=== PATIENT | female | born 1980 | race Caucasian/White ===

== ENCOUNTER 2017-12-22 09:25 | Inpatient (IN) | payer BC, OTHER ==
[2017-12-20 09:31] VITALS: BMI 18.3
--- NOTE | 2017-12-20 13:37 | HP ---
Admitting History and Physical - Primary Care Physician PCP: Macho Elizondo - Admission Chief Complaint: Bilateral accessory breast tissue BRCA positive History of Present Illness: 36 yearold prmenapausal female BRCA 2 positve S/P bilateral total mastectomies prophylactic and nipple sparing. 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 She had some lactational changes and large left axillary node left axilla benign in nature. She had reconstruction with expanders then implants and has noticed a large amount of excess breast tissue and discrete tissue in the upper inner and upper outer aspects of both breasts. Lactational changes have resolved except for retro areolar thickening. History Source: Patient Limitations to Obtaining History: No Limitations - Past Medical History ...LMP: 12/04/17 ...: No - Past Surgical History Past Surgical History: Yes: Mastectomy (Bilateral prophylactic mastectomies with implant after flower planter 2014.incidental left breast DCIS BRCA 2+ left breast excisionalbx 1998 and two core bxs 2004 and 2013. rhinoplasty) - Smoking History Smoking history: Never smoked Have you smoked in the past 12 months: No - Alcohol/Substance Use Hx Alcohol Use: Yes (SOCIALLY) Home Medications - Allergies Allergies/Adverse Reactions: Allergies Allergy/AdvReac Type Severity Reaction Status Date / Time No Known Allergies Allergy Verified 12/20/17 09:22 - Home Medications Home Medications: Ambulatory Orders Clindamycin Phos/Benzoyl Perox [Onexton Gel Pump] 50 gm TP DAILY 12/20/17 Family Disease History - Family Disease History Family Disease History: CA: Father (Lung ca 65) Other Family History: mat aunt breast ca 43 Physical Examination Constitutional: Yes: Well Nourished Breast(s): Yes: Other (Obvious bilateral nipple sparing mastectomies through imframammary aproach with bilateral implants . She has thickening retroareolar region and upper inner and outer aspects of both breasts. No suspicious masses or adenopathy) Problem List - Problems (1) Accessory breast in female Code(s): Q83.1 - ACCESSORY BREAST Assessment/Plan excision of accessory breast tissue bilaterally
[2017-12-22] MEDS ORDERED: MIDAZOLAM HCL 2 MG/2 ML SINGLE DOSE VIAL ONE (09:44)
[2017-12-22] MEDS ORDERED: PROPOFOL 20 ML ONE ×2 (09:44→11:44)
[2017-12-22] MEDS ORDERED: LIDOCAINE HCL/PF 2% SDV 5ML VIAL ONE (09:46)
[2017-12-22] MEDS ORDERED: ceFAZolin SODIUM 1 GM VIAL ONE ×2 (11:00→11:41)
[2017-12-22] MEDS ORDERED: LIDOCAINE HCL 1%, 10 MG/ML (20ML VIAL) ONE (11:01)
[2017-12-22] MEDS ORDERED: GENTAMICIN SO4 80 MG/2 ML VIAL ONE (11:01)
[2017-12-22] MEDS ORDERED: BUPIVACAINE HCL/PF 0.5% (5MG/ML) 10 ML VIAL ONE (11:01)
[2017-12-22] MEDS ORDERED: LIDOCAINE 1%/EPI 1:100000 (20 ML MULTI DOSE VIAL) ONE (11:57)
[2017-12-22] MEDS ORDERED: oxyCODONE HCL 5 MG TABLET PO PRN ×3 (13:25→14:42)
[2017-12-22] MEDS ORDERED: ZOLPIDEM TARTRATE 5 MG TABLET PO PRN (13:25)
[2017-12-22] MEDS ORDERED: ONDANSETRON 4 MG/2 ML VIAL ONE ×2 (14:01→15:11)
[2017-12-22] MEDS ORDERED: ONDANSETRON 4 MG/2 ML VIAL IVPUSH PRN (14:42)
[2017-12-22] MEDS ORDERED: PROMETHAZINE HCL 25 MG/1 ML VIAL IVPUSH PRN (14:42)
[2017-12-22] MEDS: ONDANSETRON 4 MG/2 ML VIAL IVPUSH PRN (15:13)
[2017-12-22] MEDS: CEFAZOLIN 1 GM/D5W 1 GM/50 ML BAG IVPB SCH ×2 (16:00→20:07)
[2017-12-23] MEDS: oxyCODONE HCL 5 MG TABLET PO PRN ×3 (00:53→19:00)
[2017-12-23] MEDS: CEFAZOLIN 1 GM/D5W 1 GM/50 ML BAG IVPB SCH ×4 (02:24→21:25)
--- NOTE | 2017-12-23 08:47 | OP ---
DATE OF OPERATION: 12/22/2017 PREOPERATIVE DIAGNOSIS: BRCA positive, a strong family history, status post bilateral nipple-sparing mastectomy and history of left breast ductal carcinoma in situ, now with excess breast tissue. POSTOPERATIVE DIAGNOSIS BRCA positive, a strong family history, status post bilateral nipple-sparing mastectomy and history of left breast ductal carcinoma in situ, now with excess breast tissue. PROCEDURE: :Bilateral removal of excess breast tissue and exchange of implants. PRIMARY SURGEON: Clinton Ng MD OVEN STRIPPER: VAL Freire PRIMARY SURGEON FOR THE PLACEMENT OF BILATERAL IMPLANTS AND PLACEMENT OF ALLODERM: Clinton Milligan MD HIS OVEN STRIPPER: VAL Randhawa COMPLICATIONS: There were no complications. INDICATIONS: Briefly, the patient is a 37-year-old premenopausal white female of [place], [place], [place], and [place] descent. She has a strong family history with her mother who had breast cancer at age 43 and a paternal aunt who had breast cancer at age 43. Her mother, her sister, and herself all tested positive for the BRCA2 mutation, and the patient had undergone bilateral nipple-sparing mastectomies and implant reconstructions elsewhere back in 2014. She has become twice since that surgery. During her last , she developed significant areas of breast tissue bilaterally around each implant and had significant milk production at that time. We decided to follow her closely, and after a period of time, most of these areas resolved. However, the patient was aware of all this excess breast tissue and wanted to go forward with exchange of her implants and removal of this excess breast tissue. DESCRIPTION OF PROCEDURE: She was brought in for the procedure on December 22, 2017. In the holding area, site verification was made and informed consent was obtained. She was brought into the operating room and laid on the OR table in a supine position. Venodynes were placed on the lower extremities. She received 1 g of Ancef prior to incision. She underwent general laryngeal mask airway anesthesia. Both breasts were sterilely prepped and draped in the usual fashion as well as her abdomen for some scar revision, which Dr. Milligan was performing. The left revision was first performed. The inframammary incision was reopened, and the skin flap plane was redeveloped using the PEAK radiofrequency device. The skin flap was raised superiorly all the way to the clavicle, medially to the sternum, laterally to the latissimus, and inferiorly below the level of the inframammary fold. The implant was completely removed. Breast tissue was found on the medial upper and axillary regions of the left breast as well as towards the lower outer quadrant. All this tissue was removed piecemeal as well as some retroareolar tissue, which was all sent to Pathology as left breast tissue. Hemostasis was achieved. After this was performed, the wound was irrigated and the right breast was approached. Again, the inframammary incision was reopened, and the skin flap was again raised after removing the implant on the right. The skin flap was raised superiorly to the level of the clavicle, medially to the level of the sternum, laterally to the level of the latissimus, and inferiorly below the level of the inframammary fold. Again, breast tissue was found especially towards the upper inner and upper outer axillary regions of the right breast. More tissue was also removed in the retroareolar region. There was some lidocaine with epinephrine instilled to raise the flaps and ensure protection of the skin flap. Again, hemostasis was achieved. The wounds were copiously irrigated with warm sterile saline. We did use the SPY Skin Perfusion Device, which showed good, but delayed perfusion in both skin flaps. At this point, Dr. Milligan became the primary surgeon and placed new implants bilaterally, again in the subpectoral location. Alloderm was sutured into the pectoralis major muscles bilaterally and the inferior lateral aspects to allow for the direct implant reconstruction. Drains were placed bilaterally and brought through separate stab incisions on the lateral skin flaps. All wounds were closed by plastic surgery using interrupted 3-0 deep dermal Vicryl suture and a running 4-0 subcuticular PDS suture. Mastisol and Steri-Strips were applied over the wounds with a compressive dressing placed over this. She was placed in a surgical bra postoperatively. Dr. Milligan will dictate the separate umbilical scar revision. Estimated blood loss was about 50 mL. She was hemodynamically stable throughout. All sponge and needle counts were correct at the end of the case. The patient will be recovered postoperatively, and then, admitted postoperatively for pain management and wound management. She will be placed on a SFDC CONSULTANT for postoperative pain control and will keep the bear-hugger on the skin flaps to allow perfusion. CLINTON NG M.D. [id number]
[2017-12-23] MEDS: ACETAMINOPHEN 325 MG TABLET (FP) PO PRN ×2 (09:03→18:56)
[2017-12-23] MEDS ORDERED: oxyCODONE HCL 5 MG TABLET PO PRN (09:17)
--- NOTE | 2017-12-23 09:21 | PN ---
Progress Note, Physician Chief Complaint: BRCA positve with excision of accessory breast tissue and implant exchange. POD #1 History of Present Illness: patient is eating ,OOB spirometry,pain controlled with oxycodone but will add tylenol with the dose of oxycodone - Current Medication List Current Medications: Active Medications Acetaminophen (Tylenol -) 650 mg PO Q4H PRN PRN Reason: FEVER Last Admin: 12/23/17 09:03 Dose: 650 mg Acetaminophen (Tylenol -) 325 mg PO Q4H PRN PRN Reason: PAIN LEVEL 1 - 3 Cefazolin Sodium (Ancef 1 Gm Premixed Ivpb -) 1 gm in 50 mls @ 100 mls/hr IVPB Q6H-IV IRASEMA Stop: 12/29/17 14:59 Last Admin: 12/23/17 09:02 Dose: 100 mls/hr Dextrose/Sodium Chloride (D5-1/2ns -) 1,000 mls @ 100 mls/hr IV ASDIR IRASEMA Lactated Ringer's (Lactated Ringers Solution) 1,000 mls @ 75 mls/hr IV ASDIR IRASEMA Non-Formulary Medication (Clindamycin Phos/Benzoyl Perox [Onexton Gel Pump]) 50 gm TP DAILY IRASEMA Ondansetron HCl (Zofran Injection) 4 mg IVPUSH Q6H PRN PRN Reason: NAUSEA AND/OR VOMITING Last Admin: 12/22/17 15:13 Dose: 4 mg Oxycodone HCl (Roxicodone -) 5 mg PO Q4H PRN PRN Reason: PAIN LEVEL 4 - 6 Last Admin: 12/23/17 05:23 Dose: 5 mg Zolpidem Tartrate (Ambien -) 5 mg PO HS PRN PRN Reason: Insomnia - Objective Vital Signs: Vital Signs Temperature 97.9 F 12/23/17 06:00 Pulse Rate 73 12/23/17 06:00 Respiratory Rate 18 12/23/17 06:00 Blood Pressure 107/57 12/23/17 06:00 O2 Sat by Pulse Oximetry (%) 100 12/23/17 06:23 Constitutional: Yes: No Distress Breast(s): Yes: Other (Bilateral flaps viable moderate echymosis, incision intact ubaldo drisn functioning, dressing changed) Problem List - Problems (1) 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
[2017-12-23] MEDS ORDERED: BENZOYL PEROX TP SCH (10:00)
[2017-12-23] MEDS ORDERED: [UNRECOGNIZED DRUG - OTHER] TP SCH (10:00)
[2017-12-23] MEDS ORDERED: CLINDAMYCIN PHOS TP SCH (10:00)
[2017-12-23] MEDS: ONDANSETRON 4 MG/2 ML VIAL IVPUSH PRN (12:58)
[2017-12-23] MEDS: DEXTROSE 5%-0.45% SALINE 1,000 ML IV SCH ×2 (13:00→15:21)
[2017-12-23] MEDS: LACTATED RINGERS SOLUTION 1,000 ML IV SCH ×2 (13:01→15:23)
[2017-12-24] MEDS: ACETAMINOPHEN 325 MG TABLET (FP) PO PRN ×5 (00:01→19:26)
[2017-12-24] MEDS: CEFAZOLIN 1 GM/D5W 1 GM/50 ML BAG IVPB SCH ×4 (03:08→20:41)
[2017-12-24] MEDS: oxyCODONE HCL 5 MG TABLET PO PRN ×5 (06:05→19:26)
--- NOTE | 2017-12-24 09:04 | PN ---
Progress Note (short form) - Note Progress Note: Doing well postop Still bruised but NAC viable c/o pain and discomfort post mastectomy
--- NOTE | 2017-12-24 10:21 | PN ---
Progress Note, Physician Chief Complaint: Genetic susceptibility for breast cancer s/p bilateral nipple sparing mastectomy in 2015 now with residual breast tissue requiring surgical removal and exchange of implants. History of Present Illness: The patient has a strong family history of breast cancer with a genetic susceptibility BRCA2 mutation and she underwent bilateral prophylactic nipple sparing mastectomies in 2014. She was found to have a significant amount of residual breast tissue noted after postoperative and was brought in for surgical removal of excess breast tissue and exchange of her implants with placement of alloderm. - Current Medication List Current Medications: Active Medications Acetaminophen (Tylenol -) 650 mg PO Q4H PRN PRN Reason: FEVER Last Admin: 12/24/17 06:07 Dose: 650 mg Acetaminophen (Tylenol -) 325 mg PO Q4H PRN PRN Reason: PAIN LEVEL 1 - 3 Last Admin: 12/23/17 18:56 Dose: 325 mg Cefazolin Sodium (Ancef 1 Gm Premixed Ivpb -) 1 gm in 50 mls @ 100 mls/hr IVPB Q6H-IV IRASEMA Stop: 12/29/17 14:59 Last Admin: 12/24/17 09:33 Dose: 100 mls/hr Dextrose/Sodium Chloride (D5-1/2ns -) 1,000 mls @ 100 mls/hr IV ASDIR IRASEMA Last Admin: 12/23/17 15:21 Dose: Not Given Lactated Ringer's (Lactated Ringers Solution) 1,000 mls @ 75 mls/hr IV ASDIR IRASEMA Last Admin: 12/23/17 15:23 Dose: Not Given Non-Formulary Medication (Clindamycin Phos/Benzoyl Perox [Onexton Gel Pump]) 50 gm TP DAILY [facility] Ondansetron HCl (Zofran Injection) 4 mg IVPUSH Q6H PRN PRN Reason: NAUSEA AND/OR VOMITING Last Admin: 12/23/17 12:58 Dose: 4 mg Oxycodone HCl (Roxicodone -) 5 mg PO Q4H PRN PRN Reason: PAIN LEVEL 4 - 6 Last Admin: 12/24/17 06:05 Dose: 5 mg Oxycodone HCl (Roxicodone -) 10 mg PO Q4H PRN PRN Reason: PAIN LEVEL 7 - 10 Zolpidem Tartrate (Ambien -) 5 mg PO HS PRN PRN Reason: Insomnia - Objective Vital Signs: Vital Signs Temperature 98.5 F 12/24/17 06:00 Pulse Rate 76 12/24/17 06:00 Respiratory Rate 19 12/24/17 06:00 Blood Pressure 95/68 12/24/17 06:00 O2 Sat by Pulse Oximetry (%) 98 12/24/17 07:00 Constitutional: Yes: Well Nourished, No Distress, Calm Eyes: Yes: WNL HENT: Yes: Atraumatic, Normocephalic Neck: Yes: WNL Cardiovascular: Yes: Regular Rate and Rhythm Respiratory: Yes: Regular, CTA Bilaterally Gastrointestinal: Yes: Normal Bowel Sounds, Soft ...Rectal Exam: Yes: Deferred Genitourinary: Yes: WNL Breast(s): Yes: Other (Drains functioning well. Skin flaps viable. 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 She has continued post op pain and is using oxycodone for pain. Wounds clean, dry, and intact. Drains functioning well. She remains on ancef and is afebrile/VSS. Will be stable for discharge tomorrow AM. NATA drain teaching and OOB ambulating today. Will be sent home on cefadroxil and percocet for pain. Code(s): Q83.1 - ACCESSORY BREAST
--- NOTE | 2017-12-24 10:33 | DS ---
Physical Examination Vital Signs: Vital Signs Temperature 98.5 F 12/24/17 06:00 Pulse Rate 76 12/24/17 06:00 Respiratory Rate 19 12/24/17 06:00 Blood Pressure 95/68 12/24/17 06:00 O2 Sat by Pulse Oximetry (%) 98 12/24/17 07:00 Constitutional: Yes: Well Nourished, No Distress, Calm Eyes: Yes: WNL HENT: Yes: WNL Neck: Yes: WNL Cardiovascular: Yes: Regular Rate and Rhythm Respiratory: Yes: Regular, CTA Bilaterally Gastrointestinal: Yes: Normal Bowel Sounds, Soft ...Rectal Exam: Yes: Deferred Renal/: Yes: WNL Breast(s): Yes: Other (Wounds clean, dry, and intact. Drains functioning well. Skin flaps warm and viable.) Musculoskeletal: Yes: WNL Extremities: Yes: WNL Integumentary: Yes: WNL Wound/Incision: Yes: Clean/Dry, Well Approximated Neurological: Yes: WNL ...Motor Strength: WNL Psychiatric: Yes: Alert, Oriented Discharge Summary Reason For Visit: HX BREAST CA Current Active Problems Genetic susceptibility to breast cancer (Acute) Excess residual breast tissue s/p bilateral mastectomies Procedures: Principal: Bilateral removal of excess breast tissue. Exchange of bilateral implants and placement of alloderm. Hospital Course: The patient has a strong family history of breast cancer with a genetic susceptibility BRCA2 mutation and she underwent bilateral prophylactic nipple sparing mastectomies in 2014. She was found to have a significant amount of residual breast tissue noted after postoperative and was brought in for surgical removal of excess breast tissue and exchange of her implants with placement of alloderm. The procedure was performed on December 22, 2014 and she did well postoperatively. Her LEATHER WHITENER was stopped on POD#1 but she had postoperative pain issues but which was controlled by POD#3. She was taught NATA drain care and will be sent home on Percocet for pain and cefadroxil antibiotics. She is to follow up with Drs. Elizondo and Srini in 1 week. Condition: Good - Instructions Diet, Activity, Other Instructions: Post Operative Instructions - [facility] We hope your recovery will be uneventful. For those of you who have been given general anesthesia, there is a possibility you might have some lightheadedness and possibly nausea. It is important that each patient, especially those who have had general anesthesia, follow these instructions, please: 1. Do NOT operate a motor vehicle for 24 hours. 2. Do NOT drink any alcoholic beverages for 24 hours. 3. Do NOT take any sedatives, narcotics, or tranquilizers for 24 hours unless specifically ordered by your surgeon. 4. Do NOT undertake any strenuous exercise or outside activity for 24 hours unless specifically permitted by your surgeon. 5. Eat light foods that are easy to digest. If you have any problems with nausea and vomiting, lie down and rest. If it continues, call your surgeon. 6. Call your surgeon AT ONCE if you have problems with: a. Bleeding b. Urinating c. Excessive pain or drainage d. Numbness If any problems occur, call your physician first. If you cannot reach him/her, call the Ambulatory Surgery Unit at [phone], or the Emergency Room at . Follow up with Drs. Elizondo / Hillary in 7 days. Medication: Vicodin E-S OR Percocet 1-2 tablets every 4-6 hrs as needed for 5-7 days. Wound Care: Keep wound dry and clean for 48 hours. You may remove the dressing after 48 hours and may shower. Keep steri-strips in place until follow-up appointment No heavy lifting or strenuous activities. BREAST SURGERY INSTRUCTIONS Jalil Elizondo M.D., EULA Elizondo M.D., FACS Alin Thornton M.D., FACS 1. Please call the office at to make a follow up appointment with your surgeon. This number can be also used for any urgent issues you may have. 2. Call us immediately if any of the following occur: *Bleeding from the incision or drain site (a small amount is normal) *Fever or chills *Redness and worsening tenderness around the surgical site *Drainage of pus or fluid from the incision or drain site 3. You may change the surgical dressing two (2) days after your surgery, and may shower then. If you have drains, you may shower after they have been removed, until then take a sponge bath. 4. It is normal for there to be some bruising and tenderness around the surgical site, and the breast may also be firm in this area. 5. Please wear a comfortable bra (sports or surgical bra) all day and all night until your first follow-up visit with your surgeon. 6. The pain medicine you have been prescribed may make you constipated; make sure you drink plenty of water. You may use an over the counter laxative if needed. 7. You may resume your normal diet after surgery, although you may want to avoid rich foods for the first twenty-four (24) hours after surgery. Alcoholic drinks should be avoided while taking the prescribed pain medicine. 8. You may resume normal activities as long as there is no discomfort, but do not do upper body exercises until after your follow-up appointment. Do not lift anything heavier than a large phone book. You may resume driving once you have stopped taking the prescribed pain medicine and feel comfortable doing arm movements. WEAR BRA NO SHOWER< EMPTY DRAINS TWO TO THREE TIMES DAILY Referrals: Macoh Elizondo MD [Staff Physician] - Marco Milligan MD [Staff Physician] - Disposition: HOME - Home Medications Comprehensive Discharge Medication List: Ambulatory Orders Clindamycin Phos/Benzoyl Perox [Onexton Gel Pump] 50 gm TP DAILY 12/20/17 Cefadroxil 500 mg PO BID #20 capsule 12/23/17 Oxycodone HCl/Acetaminophen [Percocet 5-325 mg Tablet] 1 - 2 tab PO Q6H PRN #30 tab MDD 6 12/23/17
[2017-12-24] MEDS: LACTATED RINGERS SOLUTION 1,000 ML IV SCH (16:20)
[2017-12-24] MEDS: DEXTROSE 5%-0.45% SALINE 1,000 ML IV SCH (16:20)
--- NOTE | 2017-12-24 16:59 | OP ---
DATE OF OPERATION: 12/22/2017 SURGEON: Clinton Milligan MD GRAD INTERN SURGEON: VAL Randhawa PREOPERATIVE DIAGNOSES: 1. Bilateral acquired chest wall deformity status post bilateral mastectomy. 2. Asymmetry of breast and remaining breast tissue from prior mastectomy. POSTOPERATIVE DIAGNOSES: 1. Bilateral acquired chest wall deformity status post bilateral mastectomy. 2. Asymmetry of breast and remaining breast tissue from prior mastectomy. OPERATIVE PROCEDURE: 1. Right breast immediate reconstruction utilizing immediate insertion of silicone breast implants and Alloderm reconstruction. 2. Left breast immediate reconstruction utilizing implant insertion and Alloderm reconstruction. 3. Bilateral angiogram with SPY angiogram x2 with interpretation. OPERATIVE INDICATION: The patient was brought to the operating room by Dr. Clinton Elizondo to perform re-excision of breast tissue after prior mastectomy. The risks and benefits of surgical versus nonsurgical, alternatives of the proceed itself were described to the patient on multiple occasions including with Dr. Elizondo together to discuss the implications of the procedure. The patient understood the diagnosis and reconstructive possibilities and the possibility of needing further surgery in the future for reconstruction. The patient's was in attendance during the discussion in the holding area as well as preoperatively. PROCEDURE IN DETAIL: The patient was taken to the operating room, and after induction of general anesthesia in the supine position, both arms were extended and padded. Venodyne boots were placed. The entire chest wall was prepped with ChloraPrep solution over its entire extent and then Dr. Elizondo performed bilateral mastectomy with retroareolar dissection and biopsy and removal of breast tissue. Operative procedure was carried out by Dr. Elizondo and will be dictated under separate cover. Upon completion of the mastectomy and removal of the prior breast implants, which had been placed, attention was turned to the submuscular space. A small, contracted capsule was seen bilaterally. This capsule was excised and opened in all aspects in order to reconstruct the breast. Using 1% local lidocaine anesthesia with 1:100,000 epinephrine this was injected into the deep subcutaneous tissue, tissue, and pectoralis major areas as well as 0.5% Marcaine for postoperative comfort. At this point after elevating the capsule on the right breast and creating a new space, the pectoralis major muscle, which had been dissected free, was brought down into its new anatomical position and then a sheet of contour-perforated medium Alloderm was brought into the field. This was sutured to the pectoralis major muscle superiorly along the edge of the border of the muscle out through its course then down to the lateral mammogram fold. A 2nd suture was begun on the medial side in order to reconstruct the medial portion of the breast and then an implant was chosen for reconstruction. At this point, a Natrelle Inspira Soft Touch breast implant style SSF 520 mL was placed into the breast pocket. Because of the previous capsule and scar, this made this more difficult. This was brought down through the new inframammary fold, which was created by suturing 3-0 Vicryl into the deep tissues of the rib margins along the lower portion of the breast. Copious irrigation of the wound was carried out using triple antibiotic solution, which was also used to soak the Alloderm and the breast implant itself. The same exact procedure was carried out on the left breast. A SPY intraoperative angiogram was carried out after the mastectomy was performed by Dr. Elizondo. It showed slightly decreased flow to the nipple areolar complex centrally but good flow peripherally and to the areola. Once the implants were placed, a 2nd injection of 4 mL of isocyanide green dye was also instituted into the intravascular system and a 2nd SPY angiogram showed improved blood flow to the nipple areolar complexes. Both wounds were closed symmetrically over 15 Grzegorz drains. Copious irrigation had been performed bilaterally and then the wounds were closed in layers using 3-0 PDS suture in the deepest suture, 3-0 Biosyn in a deep dermal fashion, and 4-0 Biosyn in a subcuticular fashion. The wounds were dressed with Dermabond and Steri-Strips, and the patient was dressed in a Surgi-Bra with fluff dressings, awakened, extubated, and transferred to the recovery room in satisfactory condition. She tolerated the procedure well. CLINTON MILLIGAN M.D. [id number]
[2017-12-25] MEDS: ACETAMINOPHEN 325 MG TABLET (FP) PO PRN ×3 (01:05→10:46)
[2017-12-25] MEDS: oxyCODONE HCL 5 MG TABLET PO PRN ×2 (01:05→06:26)
[2017-12-25] MEDS: CEFAZOLIN 1 GM/D5W 1 GM/50 ML BAG IVPB SCH ×2 (03:09→09:45)
--- NOTE | 2017-12-25 08:48 | PN ---
Progress Note, Physician Chief Complaint: Genetic susceptibility for breast cancer s/p bilateral nipple sparing mastectomy in 2015 now with residual breast tissue requiring surgical removal and exchange of implants. History of Present Illness: The patient has a strong family history of breast cancer with a genetic susceptibility BRCA2 mutation and she underwent bilateral prophylactic nipple sparing mastectomies in 2014. She was found to have a significant amount of residual breast tissue noted after postoperative and was brought in for surgical removal of excess breast tissue and exchange of her implants with placement of alloderm. - Current Medication List Current Medications: Active Medications Acetaminophen (Tylenol -) 650 mg PO Q4H PRN PRN Reason: FEVER Last Admin: 12/24/17 19:26 Dose: 650 mg Acetaminophen (Tylenol -) 325 mg PO Q4H PRN PRN Reason: PAIN LEVEL 1 - 3 Last Admin: 12/25/17 06:27 Dose: 325 mg Cefazolin Sodium (Ancef 1 Gm Premixed Ivpb -) 1 gm in 50 mls @ 100 mls/hr IVPB Q6H-IV IRASEMA Stop: 12/29/17 14:59 Last Admin: 12/25/17 03:09 Dose: 100 mls/hr Dextrose/Sodium Chloride (D5-1/2ns -) 1,000 mls @ 100 mls/hr IV ASDIR IRASEMA Last Admin: 12/24/17 16:20 Dose: Not Given Lactated Ringer's (Lactated Ringers Solution) 1,000 mls @ 75 mls/hr IV ASDIR IRASEMA Last Admin: 12/24/17 16:20 Dose: Not Given Non-Formulary Medication (Clindamycin Phos/Benzoyl Perox [Onexton Gel Pump]) 50 gm TP DAILY [facility] Ondansetron HCl (Zofran Injection) 4 mg IVPUSH Q6H PRN PRN Reason: NAUSEA AND/OR VOMITING Last Admin: 12/23/17 12:58 Dose: 4 mg Oxycodone HCl (Roxicodone -) 5 mg PO Q4H PRN PRN Reason: PAIN LEVEL 4 - 6 Last Admin: 12/25/17 06:26 Dose: 5 mg Oxycodone HCl (Roxicodone -) 10 mg PO Q4H PRN PRN Reason: PAIN LEVEL 7 - 10 Zolpidem Tartrate (Ambien -) 5 mg PO HS PRN PRN Reason: Insomnia - Objective Vital Signs: Vital Signs Temperature 98.6 F 12/25/17 06:47 Pulse Rate 65 12/25/17 06:47 Respiratory Rate 18 12/25/17 06:47 Blood Pressure 105/61 12/25/17 06:47 O2 Sat by Pulse Oximetry (%) 99 12/25/17 06:47 Constitutional: Yes: Well Nourished, No Distress, Calm Eyes: Yes: WNL HENT: Yes: Atraumatic, Normocephalic Neck: Yes: WNL Cardiovascular: Yes: Regular Rate and Rhythm Respiratory: Yes: Regular, CTA Bilaterally Gastrointestinal: Yes: Normal Bowel Sounds, Soft ...Rectal Exam: Yes: Deferred Genitourinary: Yes: WNL Breast(s): Yes: Other (Wounds clean, dry, and intact. Skin flaps warm and viable. Drains functioning well.) Musculoskeletal: Yes: WNL Extremities: Yes: WNL Integumentary: Yes: WNL Wound/Incision: Yes: Clean/Dry, Well Approximated Neurological: Yes: WNL ...Motor Strength: WNL Psychiatric: Yes: Alert, Oriented Problem List - Problems (1) Genetic susceptibility to breast cancer Code(s): Z15.01 - GENETIC SUSCEPTIBILITY TO MALIGNANT NEOPLASM OF BREAST (2) Accessory breast in female Assessment/Plan: The patient is doing well POD#3 s/p bilateral removal of excess breast tissue and implant exchange with alloderm. Wounds clean, dry, and intact and patient with good pain control now and stable for discharge. Dressing changed and patient taught NATA drain management. Patient to follow up with Drs. Milligan and Caro in 1 week. Home on cefadroxil antibiotics and percocet for pain. No heavy lifting or exercise. No bath or shower until drains removed. Keep bra in place day and night. Code(s): Q83.1 - ACCESSORY BREAST
[2017-12-25 12:24] VITALS: BP 104/55; PULSE 71; TEMP 98
--- NOTE | 2017-12-26 14:13 | PATH ---
Surgical Pathology Report Patient Name: DRE CAREY Med. Rec. #: [id number] /Age/Gender: 1980 (Age: 37) / F Account: [id number] Location: [facility] Taken: 12/22/2017 Received: 12/22/2017 Reported: 12/26/2017 Physicians: Macho Elizondo M.D. Specimen(s) Received A: BILATERAL BREAST IMPLANTS B: RIGHT BREAST TISSUE C: LEFT BREAST TISSUE Clinical History BRCA+ with excess breast tissue status post prophylactic bilateral nipple sparing mastectomy in 2014 Incidental breast cancer found Final Diagnosis A. BILATERAL BREAST IMPLANTS, REMOVAL: IMPLANTS, DESCRIBED (GROSS EXAMINATION ONLY). B. BREAST TISSUE, RIGHT, EXCISION: BENIGN BREAST TISSUE AND PORTIONS OF FIBROUS CAPSULE. C. BREAST TISSUE, LEFT, EXCISION: BENIGN BREAST TISSUE AND PORTIONS OF FIBROUS CAPSULE. BENIGN INTRAMAMMARY LYMPH NODE. Electronically Signed Maru Sweet M.D. Gross Description A. Received fresh labeled "bilateral breast implants," are 2 hinton, rubbery breast implants averaging 12 cm in diameter and 4.5 cm in depth. No soft tissue is present. No sections are submitted, gross only. B. Received in formalin labeled "right breast tissue," is a 9 g, 4.5 x 4.4 x 0.8 cm aggregate of multiple unoriented portions of fibroadipose tissue. Sectioning reveals foci of white fibrous tissue. Assembler Wet Wash sections are submitted in 3 cassettes. C. Received in formalin labeled "left breast tissue," is a 23 g, 8.0 x 6.4 x 1.0 cm aggregate of multiple unoriented portions of fibroadipose tissue. Sectioning reveals foci of white fibrous tissue and a 1.3 x 0.7 x 0.5 cm circumscribed hinton nodule, possibly a lymph node. Assembler Wet Wash sections are submitted in 5 cassettes with the possible lymph node in C1&C2. DL12/23/2017 saudi12/23/2017
== END 2017-12-25 11:45 | disposition home or self-care (01) | DRG 909 ==
LOC: FM/S 09:25 → EDSTATUS 10:30 → FM/S 16:26
PROVIDERS: ADMIT Plastic Surgery; ATTEND Surgery Surgical Oncology
PROC: 0HRV0JZ Replacement of Bilateral Breast with Synthetic Substitute, Open Approach (ICD-10-PCS; 2017-12-22)
PROC: 0H9V00Z Drainage of Bilateral Breast with Drainage Device, Open Approach (ICD-10-PCS; 2017-12-22)
PROC: 0HPU0JZ Removal of Synthetic Substitute from Left Breast, Open Approach (ICD-10-PCS; principal; 2017-12-22 11:57)
PROC: 0HPT0JZ Removal of Synthetic Substitute from Right Breast, Open Approach (ICD-10-PCS; 2017-12-22 11:57)
DX: T85.898A Other specified complication of other internal prosthetic devices, implants and grafts, initial encounter (principal); N61.1 Abscess of the breast and nipple; Y83.8 Other surgical procedures as the cause of abnormal reaction of the patient, or of later complication, without mention of misadventure at the time of the procedure; Z85.3 Personal history of malignant neoplasm of breast; Z15.01 Genetic susceptibility to malignant neoplasm of breast; Z80.3 Family history of malignant neoplasm of breast
CPT/HCPCS: 82962; 84703; 88300-TC; 88304-TC; 94010; 94760